=== PATIENT | male | born 2000 | race Caucasian/White ===

== ENCOUNTER 2018-12-30 12:15 | Emergency (ER) | payer BC ==
[2018-12-30 12:32] VITALS: BP 114/81
[2018-12-30 12:40] LABS: Influenza A Molecular POSITIVE (Negative)
--- NOTE | 2018-12-30 12:59 | UC ---
UC General HPI - HPI Summary HPI Summary: per triage, BODY ACHE, SINUS CONGESTION, HEADACHE, FEELS "HOT" SINCE FRIDAY. + mild diarrhea. + hx asthma but no sob or wheezing. - History of Current Complaint Chief Complaint: UCGeneralIllness Stated Complaint: BODY ACHES,FEVER,STOMACH ACHE,ST,COUGH Time Seen by Provider: 12/30/18 12:44 Hx Obtained From: Patient Timing: Constant Pain Intensity: 5 Associated Signs & Symptoms: Positive: Diarrhea. Negative: Abdominal Pain, Vomiting - Allergy/Home Medications Allergies/Adverse Reactions: Allergies Allergy/AdvReac Type Severity Reaction Status Date / Time No Known Allergies Allergy Verified 11/08/14 15:33 Home Medications: Home Medications Escitalopram Oxalate [Lexapro 20 mg] 20 mg PO DAILY 12/30/18 [History Confirmed 12/30/18] Naproxen [Naprosyn 500 mg tab] 500 mg PO BID PRN 12/30/18 [History Confirmed 05/12] guaiFENesin [Mucinex] 600 mg PO DAILY 12/30/18 [History Confirmed 12/30/18] PMH/Surg Hx/FS Hx/Imm Hx Respiratory History: Asthma Psychological History: Depression - Surgical History Surgical History: None - Family History Known Family History: Positive: Non-Contributory - Social History Occupation: Employed Full-time Alcohol Use: Weekly Substance Use Type: Marijuana Substance Use Comment - Amount & Last Used: DAILY Smoking Status (MU): Never Smoked Tobacco - Immunization History Vaccination Up to Date: Yes Review of Systems All Other Systems Reviewed And Are Negative: Yes Constitutional: Positive: Fever Skin: Positive: Negative Eyes: Positive: Negative ENT: Positive: Sinus Congestion Respiratory: Negative: Shortness Of Breath Cardiovascular: Positive: Negative Gastrointestinal: Positive: Diarrhea. Negative: Abdominal Pain, Vomiting Genitourinary: Positive: Negative Motor: Positive: Negative Neurovascular: Positive: Negative Musculoskeletal: Positive: Myalgia Neurological: Positive: Headache Psychological: Positive: Negative Physical Exam Triage Information Reviewed: Yes Appearance: Well-Appearing Vital Signs: Initial Vital Signs Temp 98.3 F 12/30/18 12:26 Pulse 98 12/30/18 12:26 Resp 16 12/30/18 12:26 BP 114/81 12/30/18 12:26 Pulse Ox 99 12/30/18 12:26 Vital Signs Reviewed: Yes Eyes: Positive: Conjunctiva Clear ENT: Positive: Pharynx normal, TMs normal. Negative: Nasal drainage Neck: Positive: Supple, Nontender, No Lymphadenopathy Respiratory: Positive: Lungs clear, Normal breath sounds Cardiovascular: Positive: RRR, No Murmur Abdomen Description: Positive: Nontender, No Organomegaly, Soft Bowel Sounds: Positive: Present Musculoskeletal: Positive: ROM Intact Neurological: Positive: Alert Psychological: Positive: Age Appropriate Behavior Skin Exam: Normal Diagnostics - Laboratory Diagnostic Studies Completed/Ordered: rapid flu =A positive Course/Dx - Diagnoses Provider Diagnosis: Influenza A Discharge - Sign-Out/Discharge Documenting (check all that apply): Patient Departure All imaging exams completed and their final reports reviewed: No Studies - Discharge Plan Condition: Stable Disposition: HOME Prescriptions: Oseltamivir CAP* [Tamiflu CAP*] 75 mg PO BID 5 Days #10 cap Patient Education Materials: Influenza (DC) Forms: *Work Release Referrals: Eugenie Lerner PA [Primary Care Provider] - 7 Days - Billing Disposition and Condition Condition: STABLE Disposition: Home
== END 2018-12-30 13:04 | disposition home or self-care (01) ==
LOC: UCCORT 12:15
DX: J10.1 Influenza due to other identified influenza virus with other respiratory manifestations (principal); R19.7 Diarrhea, unspecified; J45.909 Unspecified asthma, uncomplicated; F32.9 Major depressive disorder, single episode, unspecified; Z79.899 Other long term (current) drug therapy
CPT/HCPCS: 99202; G0463